=== PATIENT | female | born 1950 | race African-American/Black ===

== ENCOUNTER 2017-02-16 12:03 | Emergency (ER) | payer BC, MEDICARE | END 2017-02-16 12:04 | disposition home or self-care (01) | LOC: ER 12:03 | DX: J02.9 Acute pharyngitis, unspecified (principal); J45.909 Unspecified asthma, uncomplicated; I10 Essential (primary) hypertension; Z88.5 Allergy status to narcotic agent; Z91.040 Latex allergy status | CPT/HCPCS: 99283 ==